=== PATIENT | female | born 1990 | race Caucasian/White ===

== ENCOUNTER 2024-08-15 09:21 | Outpatient (CLI) | payer OTHER | END 2024-08-15 10:29 | disposition home or self-care (01) | LOC: NST 09:21 | PROVIDERS: ATTEND Obstetrics & Gynecology Maternal & Fetal Medicine | DX: Z34.83 Encounter for supervision of other normal pregnancy, third trimester (principal) ==

== ENCOUNTER 2024-08-17 10:19 | Outpatient (CLI) | payer OTHER ==
[2024-08-17] MEDS ORDERED: PRENATABS RX T1 EACH PO (15:00)
== END 2024-08-17 11:00 | disposition home or self-care (01) ==
LOC: NST 10:19
PROVIDERS: ATTEND Obstetrics & Gynecology Maternal & Fetal Medicine
DX: Z34.83 Encounter for supervision of other normal pregnancy, third trimester (principal)

== ENCOUNTER 2024-08-17 13:08 | Inpatient (IN) | payer OTHER ==
[~2024-08-17] VITALS: Ht 157.5 cm; Wt 75.7 kg
[2024-08-17 13:11] VITALS: BP 107/69
[2024-08-17] MEDS ORDERED: RINGERS SOLUTION,LACTATED 1,000 ML IV SCH (13:45)
[2024-08-17 14:43] LABS: INR < 0.93; PARTIAL THROMBOPLASTIN TIME 22.2 SECONDS (22.0-34.0); PROTHROMBIN TIME 9.8 SECONDS (9.0-11.5)
[2024-08-17] MEDS ORDERED: PRENATABS RX T1 EACH PO (15:00)
[2024-08-17 15:03] LABS: PH,URINE 6.5 (5.0-8.0); URINE APPEARANCE Clear; URINE BILIRRUBIN Negative (NEGATIVE); URINE BLOOD Small; URINE COLOR Yellow; URINE GLUCOSE Negative (NEGATIVE); URINE KETONE Negative (NEGATIVE); URINE LEUKOCYTE Trace; URINE NITRATE Negative; URINE PROTEIN Negative (NEGATIVE); URINE UROBILINOGEN 0.2 E.U./dl
[2024-08-17 15:04] LABS: URINE BACTERIA 497.6 uL (0.0-1933); URINE EPITHELIAL CELLS 20.8 uL (0.0-38.8); URINE RBC 5.9 uL (0.0-20.8); URINE WBC 54.5 uL (0.0-23.2)
[2024-08-17 15:25] VITALS: BP 112/74
[2024-08-17 16:07] LABS: ALBUMIN 2.9 gm/dL (3.4-5.0); BILIRUBIN TOTAL 0.43 mg/dL (0.3-1.2); CREATININE SERUM 0.59 mg/dL (0.55-1.02); GFR 117.38; GLOBULINA 3.9 G/DL (2.4-3.5); POTASSIUM 3.64 mEq/L (3.5-5.1); TOTAL PROTEIN 6.8 gm/dL (6.4-8.2)
[2024-08-17 16:17] LABS: URINE EPITHELIAL CELLS 0-4 /HPF
[2024-08-17 16:36] LABS: HEMOGLOBIN 11.5 g/dL (12.0-15.00); MEAN CELL VOLUME 83.8 fL (80.00-100.00); MEAN CORPUSCULAR HEMOGLOBIN 29.2 pg (27.00-32.0); MEAN CORPUSCULAR HGB CONC 34.9 g/dl (32.0-36.0); PLATELET COUNT 199 K/uL (150-450); RED BLOOD COUNT 3.94 M/uL (4.00-6.00); RED CELL DISTRIBUTION WIDTH 14.3 % (11.5-14.5)
[2024-08-17 19:15] VITALS: BP 121/75
[2024-08-17] MEDS ORDERED: MORPHINE SULFATE 4 MG/ML CARTRIDGE IV STA (22:32)
[2024-08-17 23:14] VITALS: BP 114/79
[2024-08-18] VITALS (9 sets, daily range): BP systolic 117–132; BP diastolic 65–80
[2024-08-18] MEDS ORDERED: MORPHINE SULFATE 4 MG/ML VIAL IV ONE (03:00)
[2024-08-18] MEDS ORDERED: CHLORHEXIDINE GLUCONATE 120 ML BOTTLE TOP SCH (05:45)
[2024-08-18] MEDS ORDERED: OxyCODONE HCL/APAP UD (PERCOCET) PO PRN (05:45)
[2024-08-18] MEDS ORDERED: OXYTOCIN 1,000 ML IV SCH (05:45)
[2024-08-18] MEDS ORDERED: KETOROLAC TROMETHAMINE 10 MG TABLET PO SCH (06:00)
[2024-08-18] MEDS ORDERED: LIDOCAINE HCL 1% 10ML VIAL IJ ONE (06:45)
[2024-08-18] MEDS ORDERED: DOCUSATE SODIUM 100MG CAP PO SCH (09:00)
[2024-08-19 01:34] VITALS: BP 117/81
[2024-08-19 06:22] VITALS: BP 106/71
[2024-08-19 08:26] VITALS: BP 132/83
== END 2024-08-19 10:19 | disposition home or self-care (01) | DRG 768 ==
LOC: LDR 13:08 → OB/GYN 08-18 08:05
PROVIDERS: ADMIT Obstetrics & Gynecology Maternal & Fetal Medicine; ATTEND Obstetrics & Gynecology Maternal & Fetal Medicine
PROC: 10D07Z6 Extraction of Products of Conception, Vacuum, Via Natural or Artificial Opening (ICD-10-PCS; principal; 2024-08-17)
PROC: 0DQR0ZZ Repair Anal Sphincter, Open Approach (ICD-10-PCS; 2024-08-17)
PROC: 0W8NXZZ Division of Female Perineum, External Approach (ICD-10-PCS; 2024-08-17)
PROC: 4A1HXCZ Monitoring of Products of Conception, Cardiac Rate, External Approach (ICD-10-PCS; 2024-08-17)
DX: O70.21 Third degree perineal laceration during delivery, IIIa (principal); Z37.0 Single live birth; O66.5 Attempted application of vacuum extractor and forceps; Z3A.37 37 weeks gestation of pregnancy; Z20.822 Contact with and (suspected) exposure to COVID-19